=== PATIENT | female | born 1945 | race Caucasian/White ===

== ENCOUNTER 2017-02-24 12:18 | Outpatient (RCR) | payer MEDICARE, BC | END 2017-05-25 | disposition home or self-care (01) | LOC: CARDREHAB → EDSTATUS 13:39 | DX: Z48.812 Encounter for surgical aftercare following surgery on the circulatory system (principal); Z95.2 Presence of prosthetic heart valve ==

== ENCOUNTER 2017-05-31 11:00 | Outpatient (RCR) | payer MEDICARE, BC | END 2017-08-29 | disposition home or self-care (01) | LOC: CARDREHAB | DX: Z48.812 Encounter for surgical aftercare following surgery on the circulatory system (principal); Z95.2 Presence of prosthetic heart valve ==